=== PATIENT | male | born 1995 | race Caucasian/White ===

== ENCOUNTER 2016-12-12 23:13 | Emergency (ER) | payer SELFPAY ==
[2016-12-12] MEDS ORDERED: Lidocaine 2% w Epi 1:100,000 Inj IJ ONE ×2 (23:18→23:22)
[2016-12-12] MEDS ORDERED: Povidone Iodine Oint 10% Foilpak UD ONE (23:21)
[2016-12-12] MEDS ORDERED: Lidocaine 1% Inj (20ml) ONE (23:22)
[2016-12-12 23:24] VITALS: BP 124/74; PULSE 85; RESP 16; TEMP 98.1; O2SAT 98
[2016-12-12] MEDS ORDERED: Lidocaine/Epi 1% 1:100000 20 ML IJ ONE (23:27)
--- NOTE | 2016-12-12 23:27 | ED PDOC ---
HPI: General Adult Time Seen by Provider: 12/12/16 23:23 Chief Complaint (Nursing): Abnormal Skin Integrity Chief Complaint (Provider): Head injury History Per: Patient Additional Complaint(s): Pt. 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 Of note, pt. states 1 month ago he struck his head against a metal pipe at the site of laceration which cause a small cut. Pt. did not seek medical attention and reports cut was still healing. Denies LOC, anticoagulant use, N/V. Past Medical History Reviewed: Historical Data, Nursing Documentation, Vital Signs Vital Signs: Last Vital Signs Temp 98.1 F 12/12/16 23:18 Pulse 85 12/12/16 23:18 Resp 16 12/12/16 23:18 BP 124/74 12/12/16 23:18 Pulse Ox 98 12/13/16 00:01 - Surgical History Surgical History: Appendectomy - Family History Family History: States: No Known Family Hx - Immunization History Hx Tetanus Toxoid Vaccination: (UTD) - Home Medications Home Medications: Ambulatory Orders Medication Instructions Recorded Cephalexin [cephalexin] 500 mg PO BID #20 cap 02/04/15 Cephalexin [cephalexin] 500 mg PO Q6 #12 cap 12/13/16 - Allergies Allergies/Adverse Reactions: Allergies Allergy/AdvReac Type Severity Reaction Status Date / Time No Known Allergies Allergy Verified 02/12/15 08:26 Review of Systems ROS Statement: Except As Marked, All Systems Reviewed And Found Negative Physical Exam - Reviewed Nursing Documentation Reviewed: Yes Vital Signs Reviewed: Yes - Physical Exam Appears: Positive for: Well, Non-toxic, No Acute Distress Head Exam: Negative for: ATRAUMATIC, NORMAL INSPECTION, NORMOCEPHALIC Skin: Positive for: Normal Color, Warm. Negative for: Rash Eye Exam: Positive for: Normal appearance, EOMI, PERRL, Other (L upper eyelid with 1.5cm Z shaped laceration without active bleeding) ENT: Positive for: Normal ENT Inspection, TM Is/Are (no hemotympanum b/l) Neck: Positive for: Normal, Painless ROM Back: Positive for: Normal Inspection. Negative for: L CVA Tenderness, R CVA Tenderness, Vertebral Tenderness (no cevical tenderness) Extremity: Positive for: Normal ROM Neurologic/Psych: Positive for: Alert, Oriented, Gait (steady and unassisted). Negative for: Aphasia, Facial Droop - ECG O2 Sat by Pulse Oximetry: 98 Procedures - Time-Out Type of Procedure: Laceration repair Site of Procedure: L upper eyelid Correct Patient (with visual ID + MR# on ID Band): Yes Correct Procedure: Yes Correct Site Marked: Yes PA/Tech: Rama - Laceration/Wound Repair Laceration Wound Length (cm): 1.5 Wound's Depth, Shape: superficial Wound Explored: clean Irrigated w/ Saline (ccs): 200 Betadine Prep?: Yes Anesthesia: 1% Lidocaine Wound Repaired With: Sutures Suture Size/Type: 6:0, proline Number of Sutures: 7 Layer Closure?: No Wound Complexity: Simple Disposition - Clinical Impression Clinical Impression: Facial laceration, Head injury - Patient ED Disposition Is Patient to be Admitted: No - Disposition Disposition: Routine/Home Disposition Time: 00:00 Condition: STABLE Additional Instructions: Suture removal in 7 days. Prescriptions: Cephalexin [cephalexin] 500 mg PO Q6 #12 cap Instructions: Facial Laceration (ED) Print Language: CHILEAN
== END 2016-12-13 00:24 | disposition home or self-care (01) ==
LOC: H.ER 23:13
DX: S01.81XA Laceration without foreign body of other part of head, initial encounter (principal); W22.8XXA Striking against or struck by other objects, initial encounter; Y92.310 Basketball court as the place of occurrence of the external cause